=== PATIENT | male | born 1955 | race Caucasian/White ===

== ENCOUNTER 2016-12-28 05:10 | Emergency (ER) | payer BC, OTHER ==
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
[2016-12-28] MEDS ORDERED: Ketorolac 30 MG/ML SDV IVPUSH ONE (05:40)
[2016-12-28] MEDS ORDERED: Sodium Chloride 0.9% 1,000 ML IV ONE (05:43)
[2016-12-28 06:06] LABS: CHLORIDE,CL 109 mmol/L (98-110); SODIUM,NA 140 mmol/L (136-146)
[2016-12-28] MEDS ORDERED: HYDROmorphone 2 MG/ML Syringe IVPUSH STA (06:41)
[2016-12-28 07:53] VITALS: BP 161/81
--- NOTE | 2016-12-28 12:46 | CT ---
EXAM DATE: 12/28/16 PATIENT'S AGE: 61 Patient: DOMI FINE Facility: [place], [place] Site . Site : 1955 Study: CT Abdomen/Pelvis [id number]/9/2017 6:38:02 AM Ordering Physician: Avel Arellano Final Report: HISTORY: Right-sided abdominal pain. TECHNIQUE: The abdomen and pelvis were scanned using technique at 3 mm intervals without IV contrast. Sagittal and coronal reconstructions were performed. COMPARISON: 25 April 2015. FINDINGS: Lung bases: No infiltrate. Liver and gallbladder: The liver parenchyma is homogeneous. No calcified gallstones. Spleen, pancreas and adrenal glands: Unremarkable. Kidneys and bladder: No calcified urolithiasis or hydronephrosis. The bladder is within normal limits. Retroperitoneum and lymph nodes: Calcification of the aorta without aneurysm. No pathologic periaortic or pelvic sidewall lymphadenopathy seen. GI tract: The stomach is decompressed. No dilated small bowel loops are seen. A short normal appendix is visualized on axial image 110. There is diverticula of the sigmoid colon. There is no surrounding inflammatory change. There is no free air in the abdomen. There is no free fluid the pelvis. Abdominal wall: Small fat containing umbilical hernia without incarceration. Pelvic organs: Prostate is enlarged. Osseous structures: No suspicious lytic or blastic bone lesions. IMPRESSION: 1. No bowel obstruction, free air or free fluid. 2. Colonic diverticulosis. 3. Prostatic hypertrophy. 4. No etiology for right-sided abdominal pain is seen. Dictated by Sheila Gordon MD @ 12/28/2016 7:05:59 AM Dictated by: Sheila Gordon MD @ 12/28/2016 07:06:20 (Electronic Signature) Report Signed by Proxy. [facility] HOSPITALMayelin
== END 2016-12-28 07:40 | disposition home or self-care (01) ==
LOC: MW.ED 05:10
DX: M54.5 Low back pain (principal); K57.90 Diverticulosis of intestine, part unspecified, without perforation or abscess without bleeding; Z96.659 Presence of unspecified artificial knee joint; Z87.891 Personal history of nicotine dependence; Z79.899 Other long term (current) drug therapy; Z88.0 Allergy status to penicillin; Z88.5 Allergy status to narcotic agent; Z88.8 Allergy status to other drugs, medicaments and biological substances
CPT/HCPCS: 74176; 80053; 81001; 83690; 85025; 96361; 96374; 96375; 99284; J1170; J1885; J7040

== ENCOUNTER 2017-05-07 14:03 | Emergency (ER) | payer OTHER ==
[2017-05-07] MEDS ORDERED: Albuterol/Ipratropium 3.0-0.5 MG/3 ML Neb Soln NEB ONE (14:09)
[2017-05-07] MEDS ORDERED: methylPREDNISolone Sodium Succinate 125 MG/2 ML SDV IVPUSH ONE (14:09)
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
[2017-05-07] MEDS ORDERED: methylPREDNISolone Sodium Succinate 125 MG/2 ML SDV ONE (14:11)
[2017-05-07] MEDS ORDERED: Sodium Chloride 0.9% 1,000 ML IV SCH (14:15)
[2017-05-07 15:40] VITALS: BP 125/85
--- NOTE | 2017-05-09 15:18 | CR ---
EXAM DATE: 05/07/17 PATIENT'S AGE: 61 Patient: DOMI FINE Facility: [place], [place] Site . Site : 1955 Study: XRay Chest [id number]/16/2017 2:50:17 PM Ordering Physician: Doctor Weller Final Report: INDICATION: Pain. Shortness of breath. Technique: Two-view chest. Comparison: Two-view chest on 10/14/2015. Findings: Heart and mediastinum are normal in size and configuration. Pulmonary vessels are normal. Lungs are clear. No pleural fluid. No acute bony abnormality. Postoperative changes in the lower cervical spine. Impression: No acute chest disease. Dictated by Randal Aguilera MD @ May 07 2017 3:13PM (Electronic Signature) Report Signed by Proxy. [facility]
== END 2017-05-07 15:44 | disposition home or self-care (01) ==
LOC: MW.ED 14:03
DX: T65.891A Toxic effect of other specified substances, accidental (unintentional), initial encounter (principal); R06.02 Shortness of breath; J44.9 Chronic obstructive pulmonary disease, unspecified; K21.9 Gastro-esophageal reflux disease without esophagitis; Z88.1 Allergy status to other antibiotic agents; Z79.899 Other long term (current) drug therapy; Z87.891 Personal history of nicotine dependence; Z88.5 Allergy status to narcotic agent; Z88.0 Allergy status to penicillin
CPT/HCPCS: 71020; 93005; 94664; 96361; 96374; 99284; J2930; J7040; 99283

== ENCOUNTER 2021-01-08 11:33 | Emergency (ER) | payer MEDICARE ==
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
[2021-01-08] MEDS ORDERED: Sodium Chloride 0.9% 2.5 ML Syringe FLUSH PRN (12:43)
[2021-01-08] MEDS ORDERED: Sodium Chloride 0.9% 10 ML Syringe FLUSH PRN (12:43)
[2021-01-08 13:30] LABS: BLOOD UREA NITROGEN,BUN 10 mg/dL (7.0-18.0); CARBON DIOXIDE,CO2 24.7 mmol/L (21.0-32.0); CHLORIDE,CL 104 mmol/L (98-107); GLUCOSE RANDOM 95 mg/dL (74-106); POTASSIUM,K 4.2 mmol/L (3.5-5.1); SODIUM,NA 141 mmol/L (136-148)
[2021-01-08 14:31] VITALS: BP 147/84; PULSE 76
--- NOTE | 2021-01-08 15:21 | US ---
DUPLEX ARTERIAL ULTRASOUND LEFT LOWER EXTREMITY WITH ULTRASOUND ANKLE-BRACHIAL INDICES, 01/08/2021 CLINICAL HISTORY: 65-year-old with left lower extremity pain and discoloration. COMPARISON: None available. TECHNIQUE: The lower/upper extremity arteries were examined per exam specific protocol with ogden-scale ultrasound, color-flow and Doppler spectral analysis. Peak systolic velocities (PSV), Doppler waveform quality and Velocity Ratios if applicable, were documented at sites per exam specific protocol. FINDINGS: Left lower extremity resting EVE measures 0.30 at the PT and is unable to be obtained at the DP. Multiphasic waveforms are seen in the common femoral and superficial femoral arteries. The transition to diminished monophasic waveforms in the visualized proximal popliteal artery and underlying high-grade stenosis in the distal SFA cannot be excluded. There is no gross evidence for arterial occlusion. Diminished monophasic waveforms are also seen in the posterior tibial artery. CAN DOFFER: 84.2 cm/s. Triphasic SFA: 48.6 cm/s. Biphasic PFA: Biphasic Pop: 26.3 cm/s. Monophasic ACTIVITIES LEADER: 17.6 cm/s. Monophasic IMPRESSION: Severely reduced left lower extremity resting EVE of 0.30. Transition to diminished monophasic waveforms in the popliteal artery which may be indicative of an underlying high-grade distal SFA stenosis. No gross evidence for arterial occlusion. Gustavo Roman M.D. [facility] [employer] [facility] [email or web address] Transcribed: 3:05 pm DW/Dictated by: Gustavo Roman MD @ 01/08/2021 2:58:00 PM (Electronically Signed)
== END 2021-01-08 14:32 | disposition home or self-care (01) ==
LOC: MW.ED 11:33
DX: I73.9 Peripheral vascular disease, unspecified (principal); F17.200 Nicotine dependence, unspecified, uncomplicated; Z88.5 Allergy status to narcotic agent; Z88.6 Allergy status to analgesic agent; Z91.048 Other nonmedicinal substance allergy status; Z88.8 Allergy status to other drugs, medicaments and biological substances; Z88.0 Allergy status to penicillin; Z88.1 Allergy status to other antibiotic agents; Z79.01 Long term (current) use of anticoagulants; Z79.899 Other long term (current) drug therapy
CPT/HCPCS: 36415; 80053; 85025; 85730; 93926; 93926-26; 99283; 99284-25

== ENCOUNTER 2022-05-25 22:32 | Emergency (ER) | payer MEDICARE, MEDICAID | END 2022-05-26 01:15 | disposition home or self-care (01) | LOC: MW.ED 22:32 | DX: I73.9 Peripheral vascular disease, unspecified (principal) | CPT/HCPCS: 99283 ==

== ENCOUNTER 2022-06-21 17:07 | Emergency (ER) | payer MEDICARE, MEDICAID ==
[2022-06-21 18:19] LABS: CARBON DIOXIDE,CO2 26.8 mmol/L (21.0-32.0); POTASSIUM,K 3.7 mmol/L (3.5-5.1)
[2022-06-21] MEDS ORDERED: VANCOmycin 1.75 GM/350 ML 1.75 GM in Premix Bag 1 BAG IV SCH (19:30)
[2022-06-21] MEDS ORDERED: Gabapentin 100 MG Cap PO ONE ×2 (19:49→20:15)
[2022-06-21] MEDS ORDERED: Baclofen 10 MG Tab PO ONE (19:50)
[2022-06-21] MEDS ORDERED: Metoprolol Tartrate 50 MG Tab PO ONE (19:50)
[2022-06-21] MEDS ORDERED: Acetaminophen/HYDROcodone 325-10 MG Tab PO ONE (19:51)
[2022-06-21 21:47] VITALS: BP 146/82; PULSE 75
== END 2022-06-21 22:06 ==
LOC: MW.ED 17:07
DX: T81.49XA Infection following a procedure, other surgical site, initial encounter (principal); Z88.5 Allergy status to narcotic agent; Z88.6 Allergy status to analgesic agent; Z91.041 Radiographic dye allergy status; Z88.0 Allergy status to penicillin; Z88.8 Allergy status to other drugs, medicaments and biological substances; Z91.013 Allergy to seafood; Z79.899 Other long term (current) drug therapy; Z79.01 Long term (current) use of anticoagulants
CPT/HCPCS: 36415; 80053; 85025; 99284; A9270; J3370

== ENCOUNTER 2022-07-02 11:31 | Emergency (ER) | payer MEDICARE, MEDICAID ==
[2022-07-02] MEDS ORDERED: Morphine 4 MG/ML Syringe IM ONE (13:34)
[2022-07-02 15:49] VITALS: BP 135/75; PULSE 60
== END 2022-07-02 15:48 | disposition home or self-care (01) ==
LOC: MW.ED 11:31
DX: Z48.00 Encounter for change or removal of nonsurgical wound dressing (principal); Z88.5 Allergy status to narcotic agent; Z88.6 Allergy status to analgesic agent; Z91.041 Radiographic dye allergy status; Z91.013 Allergy to seafood; Z88.1 Allergy status to other antibiotic agents; Z79.899 Other long term (current) drug therapy; Z79.01 Long term (current) use of anticoagulants; Z87.891 Personal history of nicotine dependence
CPT/HCPCS: 96372; 99282; J2270